=== PATIENT | female | born 1990 | race American Indian/Alaskan Native ===

== ENCOUNTER 2017-06-30 15:54 | Inpatient (IN) | payer OTHER ==
[2017-06-30 16:05] VITALS: BMI 20.7
--- NOTE | 2017-06-30 16:58 | C.PDOC ---
History Of Present Illness <Shaneka Perez - Last Filed: 06/30/17 18:48> <Shelley Wolf - Last Filed: 06/30/17 20:39> CO PERSIST PERIUMB PAIN X 5 DAYS. PETER @ [facility] [place] ON 06/27 FOR SAME. NEG LABS, US. ADVISED POSSIBLE GASTRIC ULCER. PS WORSENING, NO IMPROVE W GI MEDS. LOCALIZED CONSTANT NO ASSOC W EATING. +DEC APPETITE. NO FEVER NVD, UTI SX. LMP 1 MO. PSH NEG EXAM MILD DIST NONTOXIC HEENT ANICTERIC MMM ABD +PERIUMB TEND MOD SOFT +GUARDING GOOD TURGOR REMAINDER NEG (Shaneka Perez) History Per: Patient History/Exam Limitations: no limitations Onset/Duration Of Symptoms: Days Current Symptoms Are (Timing): Still Present Severity: Moderate Location Of Pain/Discomfort: Periumbilical <Shaneka Perez - Last Filed: 06/30/17 18:48> <Shelley Wolf - Last Filed: 06/30/17 20:39> Time Seen by Provider: 06/30/17 16:25 Chief Complaint (Nursing): Abdominal Pain Past Medical History Reviewed: Historical Data, Nursing Documentation, Vital Signs - Medical History PMH: No Chronic Diseases Other Surgeries: Hx of surgeries Family History: States: No Known Family Hx - Social History Hx Alcohol Use: Yes Hx Substance Use: Yes (Marijuana) - Immunization History Hx Tetanus Toxoid Vaccination: No Hx Influenza Vaccination: No Hx Pneumococcal Vaccination: No <Shaneka Perez - Last Filed: 06/30/17 18:48> Vital Signs: Last Vital Signs Temp 98.5 F 06/30/17 16:05 Pulse 85 06/30/17 16:05 Resp 16 06/30/17 16:05 BP 127/80 06/30/17 16:05 Pulse Ox 100 06/30/17 18:50 Review Of Systems Except As Marked, All Systems Reviewed And Found Negative. Constitutional: Negative for: Fever, Chills Gastrointestinal: Positive for: Abdominal Pain (periumbilical pain). Negative for: Nausea, Vomiting, Diarrhea Genitourinary: Negative for: Dysuria, Hematuria <Shaneka Perez - Last Filed: 06/30/17 18:48> Physical Exam - Physical Exam Appears: Non-toxic, Other (mild distress) Skin: Normal Color, Warm, Other (good turgor) Head: Atraumatic, Normacephalic Eye(s): bilateral: Other (anicteric) Nose: Normal Oral Mucosa: Moist Gastrointestinal/Abdominal: Soft, Tenderness (moderate periumbilical tenderness) , Guarding, No Rebound Neurological/Psych: Oriented x3, Normal Speech, Normal Motor, Normal Sensation <Shaneka Perez - Last Filed: 06/30/17 18:48> ED Course And Treatment - Laboratory Results Result Diagrams: 06/30/17 17:22 06/30/17 17:22 O2 Sat by Pulse Oximetry: 100 (RA) Pulse Ox Interpretation: Normal <Shaneka Perez - Last Filed: 06/30/17 18:48> - Laboratory Results Result Diagrams: 06/30/17 17:22 06/30/17 17:22 <Joanna Wolfchayito - Last Filed: 06/30/17 20:39> Progress - Data Reviewed Data Reviewed: Lab, Diagnostic imaging, Old records <Shaneka Perez - Last Filed: 06/30/17 18:48> Medical Decision Making <Shaneka Perez - Last Filed: 06/30/17 18:48> <Shelley Wolf - Last Filed: 06/30/17 20:39> Medical Decision Making: Plan: --Labs --UA --CT- Abd/Pelv. --IV Fluids --Zofran IV (Shaneka Perez) Disposition - Disposition Disposition Time: 19:00 <Shaneka Perez - Last Filed: 06/30/17 18:48> Discussed With : Milton Magana Comment: accepted the pt on her service and took over the care fara 8:38 PM Doctor Will See Patient In The: ED Counseled Patient/Family Regarding: Studies Performed, Diagnosis <Shelley Wolf - Last Filed: 06/30/17 20:39> - Disposition Disposition: HOSPITALIZED Condition: FAIR Instructions: Intussusception Forms: [facility] (Bulgarian) - Clinical Impression Clinical Impression: Abdominal pain, Intussusception - Scribe Statement The provider has reviewed the documentation as recorded by the Scribe <Shaneka Perez - Last Filed: 06/30/17 18:48> <MaryannJoannachayito - Last Filed: 06/30/17 20:39> - Scribe Statement Tracy Rodriguez (Shaneka Perez) Provider Attestation: All medical record entries made by the Scribe were at my direction and personally dictated by me. I have reviewed the chart and agree that the record accurately reflects my personal performance of the history, physical exam, medical decision making, and the department course for this patient. I have also personally directed, reviewed, and agree with the discharge instructions and disposition. (Shaneka Perez) Physician Patient Turnover Patient Signed Over To: Shelley Wolf Handoff Comments: FU CT, DISPO <Shaneka Perez - Last Filed: 06/30/17 18:48> Decision To Admit <Shaneka Perez - Last Filed: 06/30/17 18:48> - Pt Status Changed To: Hospital Disposition Of: Inpatient - Admit Certification Admit to Inpatient:: After my assessment, the patient will require hospitalization for at least two midnights. This is because of the severity of symptoms shown, intensity of services needed, and/or the medical risk in this patient being treated as an outpatient. - InPatient: Physician Admission Certification:: After my assessment, the patient will require hospitalization for at least two midnights. This is because of the severity of symptoms shown, intensity of services needed, and/or the medical risk in this patient being treated as an outpatient. - . Bed Request Type: Regular Admitting Physician: Milton Magana <Shelley Wolf - Last Filed: 06/30/17 20:39> - . Patient Diagnosis: Abdominal pain, Intussusception
[2017-06-30] MEDS ORDERED: Iohexol 240 (50 ml) PO STA (17:09)
[2017-06-30] MEDS ORDERED: Sodium Chloride 0.9% 1,000 ML IV ONE ×2 (17:09→19:46)
[2017-06-30 17:25] LABS: EOS # 0.1 K/uL (0.0-0.7); EOS % 2.9 % (0.0-4.0); HEMOGLOBIN 11.9 g/dL (11.0-16.0); LYMPH # 2.2 K/uL (1.0-4.3); LYMPH % 48.4 % (20.0-40.0); MEAN CELL VOLUME 73.9 fL (81.0-99.0); MEAN CORPUSCULAR HEMOGLOBIN 23.6 pg (27.0-31.0); MEAN PLATELET VOLUME 7.7 fL (7.2-11.7); MONO # 0.3 K/uL (0.0-0.8); MONO % 6.8 % (0.0-10.0); NEUT # 1.9 K/uL (1.8-7.0); NEUT % 40.9 % (50.0-75.0); NRBC % 0.2 % (0.0-2.0); RBC 5.03 Mil/uL (3.80-5.20); RED CELL DISTRIBUTION WIDTH 15.1 % (11.5-14.5); WHITE BLOOD COUNT 4.6 K/uL (4.8-10.8)
[2017-06-30] MEDS ORDERED: Sodium Chloride 0.9% 1,000 ML ONE (17:28)
[2017-06-30] MEDS ORDERED: Morphine 4 MG/ML VIAL ONE (17:28)
[2017-06-30] MEDS ORDERED: Iohexol 240 (50 ml) ONE (17:28)
[2017-06-30 17:30] LABS: SQUAMOUS EPITHIAL 3 /hpf (0-5); URINE BILIRUBIN NEGATIVE (NEGATIVE); URINE BLOOD NEGATIVE (NEGATIVE); URINE CLARITY Clear (Clear); URINE COLOR Yellow (YELLOW); URINE GLUCOSE (UA) NORMAL (Normal); URINE LEUKOCYTE ESTERASE NEG Leu/uL (Negative); URINE PROTEIN NEGATIVE (NEGATIVE)
[2017-06-30 17:37] LABS: ALB/GLOB RATIO 1.2 (1.0-2.1); ALT/SGPT 16 U/L (9-52); AST/SGOT 13 U/L (14-36); BLOOD UREA NITROGEN 9 mg/dL (7-17); GFR AFRICAN-AMERICAN > 60; GFR NON-AFRICAN AMERICAN > 60; LIPASE 214 U/L (23-300)
[2017-06-30] MEDS ORDERED: Iohexol 300 100 ML IJ ONE (18:12)
--- NOTE | 2017-06-30 19:38 | CT ---
EXAM: CT Abdomen and Pelvis With Intravenous Contrast EXAM DATE/TIME: Exam ordered 06/30/2017 5:09 PM CLINICAL HISTORY: 26 years old, female; Pain; Abdominal pain; Additional info: Abd pain RO appy TECHNIQUE: Axial computed tomography images of the abdomen and pelvis with intravenous contrast. All CT scans at this facility use one or more dose reduction techniques, viz.: automated exposure control; ma/kV adjustment per patient size (including targeted exams where dose is matched to indication; i.e. head); or iterative reconstruction technique. Coronal and sagittal reformatted images were created and reviewed. CONTRAST: 100 mL of OMNI 300 administered intravenously. COMPARISON: No relevant prior studies available. FINDINGS: Lower thorax: No acute findings. ABDOMEN: Liver: Unremarkable. No mass. Gallbladder and bile ducts: Unremarkable. No calcified stones. No ductal dilation. Pancreas: Unremarkable. No mass. No ductal dilation. Spleen: Unremarkable. No splenomegaly. Adrenals: Unremarkable. No mass. Kidneys and ureters: Unremarkable. No solid mass. No hydronephrosis. Stomach and bowel: There is a short segment entero-enteric intussusception in the region of the Distal jejunum/proximal ileum. The intussuscepted segment measures approximately 1.5 cm in length. There is mild dilatation of proximal jejunal loops. No mucosal thickening. Appendix: No findings to suggest acute appendicitis. PELVIS: Bladder: Unremarkable. No mass. Reproductive: Unremarkable as visualized. ABDOMEN and PELVIS: Intraperitoneal space: Unremarkable. No free air. No significant fluid collection. Bones/joints: No acute fracture. No dislocation. Soft tissues: Unremarkable. Vasculature: Unremarkable. No abdominal aortic aneurysm. Lymph nodes: Unremarkable. No enlarged lymph nodes. IMPRESSION: 1. Short segment small bowel intussusception involving the distal jejunum/proximal ileum. There is mild dilatation of the proximal jejunal loops. No evidence of strangulation. 2. The appendix is normal. Images were attached to this report and are available at [email or web address]
--- NOTE | 2017-06-30 20:40 | CP.PCM.HP ---
History of Present Illness - History of Present Illness History of Present Illness: Surgery H&P. Dr. Magana 26yo F with no significant PMHx here for evaluation of abdominal pain. Pain started 6 days ago. Located in the magnolia-umbilical region, described as sharp, constant, ranges from 9/10 at its worst to 3/10 at its least. She states that she was seen at [place] [facility] when the pain commenced, had an Abdominal US performed and was told it is likely gastritis and discharged home with recommendations to return with concerning symptoms. Pain has not improved with Protonix or Ibuprofen 800mg. Able to tolerate diet, however, does report mild decrease in appetite. She denies any nausea or vomiting. Has been having regular bowel movements daily, normal caliber and character. Does report a single episode of red blood tinged BM 2 weeks ago. Recalls similar pain 2 years ago which resolved on its own in 2 weeks. Currently on oral contraceptives for control, denies possibility of . Denies urinary changes. No CP/ SOB. No Fevers or chills. No headaches. PMHx: denies PSHx: abortions x2 (2008, 2009) Social Hx: Admits to smoking 3 black&mild cigars per day; ETOH use on weekends; Admits to smoking marijuana daily Family Hx: non-contributory NKDA Present on Admission - Present on Admission Any Indicators Present on Admission: No Review of Systems - Review of Systems All systems: reviewed and no additional remarkable complaints except - Constitutional Constitutional: Anorexia (decreased appetite). absent: Chills, Fever - Cardiovascular Cardiovascular: absent: Chest Pain, Dyspnea - Respiratory Respiratory: absent: Cough, Dyspnea - Gastrointestinal Gastrointestinal: Abdominal Pain. absent: Change in Bowel Habits, Change in Stool Character, Constipation, Diarrhea, Hematemesis, Hematochezia, Melena, Nausea, Vomiting - Genitourinary Genitourinary: absent: Difficulty Urinating, Dysuria - Musculoskeletal Musculoskeletal: absent: Back Pain - Neurological Neurological: absent: Dizziness, Headaches Past Patient History - Infectious Disease Hx of Infectious Diseases: None - Past Medical History & Family History Past Family History: Reviewed and not pertinent - Past Social History Smoking Status: Light Smoker < 10 Cigarettes Daily Cigar Use: Yes (3 black&mild cigars per day) Alcohol: Social (admits to drinking ETOH over weekends) Drugs: Cannabis - PSYCHIATRIC Hx Substance Use: Yes (Marijuana) - SURGICAL HISTORY Hx Surgeries: Yes Other/Comment: 2008, 2010 PER PATIENT - ANESTHESIA Hx Anesthesia: Yes Hx Anesthesia Reactions: No Meds Allergies/Adverse Reactions: Allergies Allergy/AdvReac Type Severity Reaction Status Date / Time No Known Allergies Allergy Verified 06/30/17 16:03 Physical Exam - Constitutional Appears: Well, Non-toxic, No Acute Distress - Head Exam Head Exam: ATRAUMATIC, NORMAL INSPECTION, NORMOCEPHALIC - Eye Exam Eye Exam: EOMI, Normal appearance. absent: Scleral icterus - ENT Exam ENT Exam: Mucous Membranes Moist - Respiratory Exam Respiratory Exam: NORMAL BREATHING PATTERN. absent: Accessory Muscle Use, Respiratory Distress - Cardiovascular Exam Cardiovascular Exam: absent: JVD - GI/Abdominal Exam GI & Abdominal Exam: Soft. absent: Distended, Firm, Guarding, Rebound, Rigid Additional comments: magnolia umbilical tenderness to palpation soft; non-distended, no rebound, no guarding - Extremities Exam Extremities exam: Positive for: normal inspection. Negative for: calf tenderness - Neurological Exam Neurological exam: Alert, Oriented x3 - Psychiatric Exam Psychiatric exam: Anxious, Normal Affect - Skin Skin Exam: Dry, Intact, Normal Color, Warm Results - Vital Signs Recent Vital Signs: Last Vital Signs Temp 98.5 F 06/30/17 16:05 Pulse 85 06/30/17 16:05 Resp 16 06/30/17 16:05 BP 127/80 06/30/17 16:05 Pulse Ox 100 06/30/17 18:50 - Labs Result Diagrams: 06/30/17 17:22 06/30/17 17:22 Labs: Laboratory Results - last 24 hr 06/30/17 06/30/17 06/30/17 17:22 17:22 17:22 WBC 4.6 L RBC 5.03 Hgb 11.9 Hct 37.1 MCV 73.9 L MCH 23.6 L MCHC 32.0 L RDW 15.1 H Plt Count 264 MPV 7.7 Neut % (Auto) 40.9 L Lymph % (Auto) 48.4 H Carter % (Auto) 6.8 Eos % (Auto) 2.9 Baso % (Auto) 1.0 Neut # (Auto) 1.9 Lymph # (Auto) 2.2 Carter # (Auto) 0.3 Eos # (Auto) 0.1 Baso # (Auto) 0.0 Sodium 140 Potassium 4.3 Chloride 106 Carbon Dioxide 24 Anion Gap 14 BUN 9 Creatinine 0.8 Est GFR ( Amer) > 60 Est GFR (Non-Af Amer) > 60 Random Glucose 84 Calcium 8.0 L Total Bilirubin 0.6 AST 13 L D ALT 16 Alkaline Phosphatase 24 L D Total Protein 7.4 Albumin 4.0 Globulin 3.3 Albumin/Globulin Ratio 1.2 Lipase 214 Urine Color Yellow Urine Clarity Clear Urine pH 7.0 Ur Specific [place] 1.021 Urine Protein Negative Urine Glucose (UA) Normal Urine Ketones Negative Urine Blood Negative Urine Nitrate Negative Urine Bilirubin Negative Urine Urobilinogen 4.0 H Ur Leukocyte Esterase Neg Urine WBC (Auto) 1 Urine RBC (Auto) 2 Ur Squamous Epith Cells 3 Assessment & Plan - Assessment and Plan (Free Text) Assessment: 26yo F with possible entero-enteric intussuception - CT Abd/Pelvis noted Plan: - Conservative management - Bentyl - NPO except meds for bowel rest - IVF - strict I&O - Pain management - serial abdominal exams Further recs as per Dr. Chino Biswas PGY1 surgery pager: [phone]
[2017-06-30] MEDS ORDERED: Sodium Chloride 0.9% 1,000 ML IV SCH (20:45)
[2017-07-01 00:53] VITALS: RESP 20
[2017-07-01 06:25] LABS: BASO % 0.6 % (0.0-2.0); EOS # 0.2 K/uL (0.0-0.7); EOS % 2.8 % (0.0-4.0); HEMOGLOBIN 10.7 g/dL (11.0-16.0); LYMPH # 2.7 K/uL (1.0-4.3); LYMPH % 45.1 % (20.0-40.0); MEAN CELL VOLUME 74.5 fL (81.0-99.0); MEAN CORPUSCULAR HEMOGLOBIN 23.5 pg (27.0-31.0); MEAN CORPUSCULAR HGB CONC 31.5 g/dL (33.0-37.0); MEAN PLATELET VOLUME 7.9 fL (7.2-11.7); MONO # 0.3 K/uL (0.0-0.8); MONO % 5.7 % (0.0-10.0); NEUT # 2.7 K/uL (1.8-7.0); NEUT % 45.8 % (50.0-75.0); NRBC % 0.2 % (0.0-2.0); RBC 4.56 Mil/uL (3.80-5.20); RED CELL DISTRIBUTION WIDTH 14.9 % (11.5-14.5)
[2017-07-01 06:44] LABS: ALB/GLOB RATIO 1.1 (1.0-2.1); ALBUMIN 3.1 g/dL (3.5-5.0); ALT/SGPT 20 U/L (9-52); BLOOD UREA NITROGEN 7 mg/dL (7-17); CALCIUM 7.9 mg/dl (8.6-10.4); GFR AFRICAN-AMERICAN > 60; GFR NON-AFRICAN AMERICAN > 60
[2017-07-01 06:49] LABS: AST/SGOT 15 U/L (14-36)
[2017-07-01 08:11] VITALS: O2SAT 99
--- NOTE | 2017-07-01 11:50 | CP.PCM.PN ---
Objective - Vital Signs/Intake and Output Vital Signs (last 24 hours): Temp Pulse Resp BP Pulse Ox 98.0 F 59 L 20 120/72 99 07/01/17 08:10 07/01/17 08:10 07/01/17 08:10 07/01/17 08:10 07/01/17 08:10 Intake and Output: 07/01/17 07/01/17 06:59 18:59 Intake Total 840 Balance 840 - Medications Medications: Current Medications Dicyclomine HCl (Bentyl) 20 mg PO QID [facility] Last Admin: 07/01/17 09:07 Dose: 20 mg Sodium Chloride (Sodium Chloride 0.9%) 1,000 mls @ 105 mls/hr IV .Q9H32M [facility] Last Admin: 07/01/17 08:34 Dose: 105 mls/hr Ketorolac Tromethamine (Toradol) 15 mg IVP Q6 PRN PRN Reason: Pain, moderate (4-7) Pneumococcal Polyvalent Vaccine (Pneumovax 23 Vaccine) 0.5 ml IM .ONCE ONE Stop: 07/03/17 11:01 - Labs Labs: 07/01/17 06:14 07/01/17 06:14
--- NOTE | 2017-07-01 13:28 | CP.PCM.DIS ---
Provider - Provider Date of Admission: 06/30/17 20:37 Attending physician: Milton Magana MD Time Spent in preparation of Discharge (in minutes): 5 Hospital Course - Lab Results Lab Results: Most Recent Lab Values WBC 6.0 K/uL (4.8-10.8) 07/01/17 06:14 RBC 4.56 Mil/uL (3.80-5.20) 07/01/17 06:14 Hgb 10.7 g/dL (11.0-16.0) L 07/01/17 06:14 Hct 33.9 % (34.0-47.0) L 07/01/17 06:14 MCV 74.5 fL (81.0-99.0) L 07/01/17 06:14 MCH 23.5 pg (27.0-31.0) L 07/01/17 06:14 MCHC 31.5 g/dL (33.0-37.0) L 07/01/17 06:14 RDW 14.9 % (11.5-14.5) H 07/01/17 06:14 Plt Count 245 K/uL (130-400) 07/01/17 06:14 MPV 7.9 fL (7.2-11.7) 07/01/17 06:14 Neut % (Auto) 45.8 % (50.0-75.0) L 07/01/17 06:14 Lymph % (Auto) 45.1 % (20.0-40.0) H 07/01/17 06:14 [place] % (Auto) 5.7 % (0.0-10.0) 07/01/17 06:14 Eos % (Auto) 2.8 % (0.0-4.0) 07/01/17 06:14 Baso % (Auto) 0.6 % (0.0-2.0) 07/01/17 06:14 Neut # (Auto) 2.7 K/uL (1.8-7.0) 07/01/17 06:14 Lymph # (Auto) 2.7 K/uL (1.0-4.3) 07/01/17 06:14 [place] # (Auto) 0.3 K/uL (0.0-0.8) 07/01/17 06:14 Eos # (Auto) 0.2 K/uL (0.0-0.7) 07/01/17 06:14 Baso # (Auto) 0.0 K/uL (0.0-0.2) 07/01/17 06:14 Sodium 139 mmol/L (132-148) 07/01/17 06:14 Potassium 4.4 mmol/L (3.6-5.2) 07/01/17 06:14 Chloride 108 mmol/L (98-107) H 07/01/17 06:14 Carbon Dioxide 23 mmol/L (22-30) 07/01/17 06:14 Anion Gap 12 (10-20) 07/01/17 06:14 BUN 7 mg/dL (7-17) 07/01/17 06:14 Creatinine 0.8 mg/dL (0.7-1.2) 07/01/17 06:14 Est GFR ( Amer) > 60 07/01/17 06:14 Est GFR (Non-Af Amer) > 60 07/01/17 06:14 Random Glucose 77 mg/dL (65-105) 07/01/17 06:14 Lactic Acid < 0.5 mmol/L (0.7-2.1) L 07/01/17 06:14 Calcium 7.9 mg/dl (8.6-10.4) L 07/01/17 06:14 Total Bilirubin 0.7 mg/dL (0.2-1.3) 07/01/17 06:14 AST 15 U/L (14-36) 07/01/17 06:14 ALT 20 U/L (9-52) 07/01/17 06:14 Alkaline Phosphatase 23 U/L (38-126) L 07/01/17 06:14 Total Protein 5.9 g/dL (6.3-8.3) L 07/01/17 06:14 Albumin 3.1 g/dL (3.5-5.0) L D 07/01/17 06:14 Globulin 2.9 gm/dL (2.2-3.9) 07/01/17 06:14 Albumin/Globulin Ratio 1.1 (1.0-2.1) 07/01/17 06:14 Lipase 214 U/L (23-300) 06/30/17 17:22 Urine Color Yellow (YELLOW) 06/30/17 17:22 Urine Clarity Clear (Clear) 06/30/17 17:22 Urine pH 7.0 (5.0-8.0) 06/30/17 17:22 Ur Specific [place] 1.021 (1.003-1.030) 06/30/17 17:22 Urine Protein Negative mg/dL (NEGATIVE) 06/30/17 17:22 Urine Glucose (UA) Normal mg/dL (Normal) 06/30/17 17:22 Urine Ketones Negative mg/dL (NEGATIVE) 06/30/17 17:22 Urine Blood Negative (NEGATIVE) 06/30/17 17:22 Urine Nitrate Negative (NEGATIVE) 06/30/17 17: Urine Bilirubin Negative (NEGATIVE) 06/30/17 17: Urine Urobilinogen 4.0 mg/dL (0.2-1.0) H 06/30/17 17:22 Ur Leukocyte Esterase Neg Jasmine/uL (Negative) 06/30/17 17:22 Urine WBC (Auto) 1 /hpf (0-5) 06/30/17 17:22 Urine RBC (Auto) 2 /hpf (0-3) 06/30/17 17:22 Ur Squamous Epith Cells 3 /hpf (0-5) 06/30/17 17:22 - Hospital Course Hospital Course: pt is 26F with no PMH admitted for acute abdominal pain. CT read as intussusception. Pt clinical presentation not congruent with findings. Kept for observation. Started on diet and ADAT. Passing flatus. Pt requesting discharge. Discharge Exam - Head Exam Head Exam: ATRAUMATIC, NORMAL INSPECTION, NORMOCEPHALIC - Eye Exam Eye Exam: Normal appearance - Cardiovascular Exam Cardiovascular Exam: REGULAR RHYTHM - GI/Abdominal Exam GI & Abdominal Exam: Firm, Soft. absent: Mass, Tenderness - Neurological Exam Neurological exam: Alert, Oriented x3 - Psychiatric Exam Psychiatric exam: Normal Affect, Normal Mood - Skin Skin Exam: Abrasion, Warm Discharge Plan - Follow Up Plan Condition: FAIR Disposition: HOME/ ROUTINE Instructions: Intussusception
[2017-07-01 17:07] VITALS: BP 125/67; PULSE 60; TEMP 99.3
[2017-07-03] MEDS ORDERED: Pneumococcal 23-Valent Vaccine IM ONE (11:00)
[2017-07-03] MEDS ORDERED: Influenza Vaccine 60 mcg/0.5 mL SYR (4YR UP) IM ONE (11:00)
== END 2017-07-01 18:07 | disposition home or self-care (01) | DRG 814 ==
LOC: C.ER 15:54 → C.9E 20:37 → C.6T 22:02
PROVIDERS: ADMIT Specialist; ATTEND Specialist
DX: R10.9 Unspecified abdominal pain (principal); F12.90 Cannabis use, unspecified, uncomplicated; F17.210 Nicotine dependence, cigarettes, uncomplicated